=== PATIENT | female | born 1985 | race Caucasian/White ===

== ENCOUNTER → 2016-09-05 | Outpatient (CLI) | payer BC ==
[2014-05-01 07:27] VITALS: BP 159/73
[~2016-09-05] MED LIST: CEPH-263 PO
--- NOTE | 2016-09-05 12:03 | RAD ---
Abdomen radiographs History: Left lower quadrant, surgical removal of endometrial tissue about 2 weeks earlier. Comparison: CT abdomen pelvis 04/18/2009. Findings: AP supine and upright abdomen radiographs, 4 images. Bowel gas pattern is nonspecific, without evidence of obstruction. Mild-moderate colonic stool seen. Cholecystectomy clips are present. No pneumoperitoneum is identified. Impression: Nonspecific bowel gas pattern.
== END | disposition home or self-care (01) ==
LOC: DXRADRC 11:42
PROVIDERS: ATTEND Physician Assistant
DX: R10.32 Left lower quadrant pain (principal)
CPT/HCPCS: 74020

== ENCOUNTER → 2019-11-12 | Outpatient (CLI) | payer BC ==
[2014-05-01 07:27] VITALS: BP 159/73
[~2019-11-12] MED LIST changes: +IOHEXOL 240 MG/ML 50ML VIAL. ONE; +IOHEXOL 240 MG/ML 50ML VIAL. PO ONE; +IOHEXOL 300 MG/ML 75 ML VIAL. IV ONE
--- NOTE | 2019-11-12 09:59 | RAD ---
CT abdomen and pelvis with contrast History: Nausea and vomiting, diarrhea for 3 weeks Technique: After the administration of intravenous contrast, CT imaging was performed of the abdomen and pelvis. Oral contrast was also given. Multiplanar images are reviewed. Exposure: One or more of the following individualized dose reduction techniques were utilized for this examination: 1. Automated exposure control 2. Adjustment of the mA and/or kV according to patient size 3. Use of iterative reconstruction technique. Comparison: April 18, 2009 Findings: There is some motion. There is no significant abnormality of the visualized lung bases. There is no significant abnormality of the liver, spleen, pancreas, adrenal glands. Both kidneys enhance. There is similar right renal extrarenal pelvis and pelviectasis. There has been cholecystectomy. Accurate evaluation of bowel is limited without oral contrast. There is no significant inflammatory change adjacent to the bowel. There is no evidence of bowel obstruction, free fluid, or free air. Normal caliber appendix is visualized without adjacent inflammatory change. There is mild sigmoid colonic diverticulosis. There is tampon present. There is fullness of the left adnexal region with convex margin, also more round appearance of the right adnexa although size which can be considered within normal limits. There are several inguinal nodes bilaterally not considered significantly enlarged, largest on the left about 0.9 cm short axis dimension. Impression: 1. There is no significant localized inflammatory type change about the bowel. There is mild colonic diverticulosis. There is no CT evidence of acute appendicitis. 2. Some fullness of the left adnexal region, does not have features of simple cyst/fluid. There could be component of dilatation of the left fallopian tube although density characteristics greater than simple fluid. Ultrasound evaluation could be beneficial as per clinical indication. Electronically signed by: Heriberto Jo MD (11/12/2019 9:56 AM) [id number]
== END | disposition home or self-care (01) ==
LOC: CT 08:26
DX: K57.30 Diverticulosis of large intestine without perforation or abscess without bleeding (principal); Z90.49 Acquired absence of other specified parts of digestive tract
CPT/HCPCS: 74177; Q9966; Q9967